=== PATIENT | male | born 1970 | race Caucasian/White ===

== ENCOUNTER 2020-07-10 18:34 | Emergency (ER) | payer BC ==
[2020-07-10 18:44] VITALS: BP 148/93; PULSE 80
[2020-07-10] MEDS ORDERED: HYDROmorphone 0.5 MG/0.5 ML Syringe IM ONE (18:52)
--- NOTE | 2020-07-10 19:07 | EDM.PDOC ---
ED HPI GENERAL MEDICAL PROBLEM - General Chief Complaint: Lower Extremity Injury/Pain Stated Complaint: RT FOOT INJURY Time Seen by Provider: 07/10/20 18:42 Source of Information: Reports: Patient, RN Notes Reviewed History Limitations: Reports: No Limitations - History of Present Illness INITIAL COMMENTS - FREE TEXT/NARRATIVE: Patient is a 50-year-old male who presents to the ER for a right foot injury. Patient notes that just prior to coming to the ER, he had a piece of angle iron that weighed roughly 10 pounds dropped onto the top of his right foot. States he was able to walk directly after this, but trying to put weight on this much at all afterwards, provides some extreme pain. Denies any numbness or tingling distal to the injury, but he does state some pain radiates up the anterior portion of his leg. He did not take anything for pain management prior to coming to the ER. He can wiggle his toes in all range of motion without much difficulty. Plantarflexion and dorsiflexion seem to provide some pain however he is able to do such with adequate strength. Patient denies any other sick- like symptoms, fever/chills, cough/shortness of breath, nausea/vomiti ng/diarrhea. Right Foot Pain Score (Numeric/FACES): 9 - Related Data Allergies Allergy/AdvReac Type Severity Reaction Status Date / Time No Known Allergies Allergy Verified 07/10/20 18:44 Home Meds: Home Meds . [No Known Home Meds] 07/10/20 [History] Past Medical History - Past Health History Medical/Surgical History: Denies Medical/Surgical History Social & Family History - Tobacco Use Tobacco Use Status *Q: Current Every Day Tobacco User Years of Tobacco use: 30 Packs/Tins Daily: 1 - Caffeine Use Caffeine Use: Reports: Coffee, Soda - Recreational Drug Use Recreational Drug Use: No - Living Situation & Occupation Living situation: Reports: , with Spouse Occupation: Employed Review of Systems - Review of Systems Review Of Systems: Comprehensive ROS is negative, except as noted in HPI. ED EXAM, GENERAL - Physical Exam Exam: See Below Exam Limited By: No Limitations General Appearance: Alert, WD/WN, No Apparent Distress Respiratory/Chest: No Respiratory Distress, Lungs Clear, Normal Breath Sounds, No Accessory Muscle Use, Chest Non-Tender Cardiovascular: Normal Peripheral Pulses, Regular Rate, Rhythm, No Edema Extremities: Normal Range of Motion, Normal Capillary Refill, Other (foot pain to right anterior midfoot) Neurological: Alert, Oriented, Normal Cognition, No Motor/Sensory Deficits Psychiatric: Normal Affect, Normal Mood Skin Exam: Warm, Dry, Intact, Normal Color, No Rash Course - Vital Signs Last Recorded V/S: Last Vital Signs Temp 97.6 F 07/10/20 18:40 Pulse 80 07/10/20 18:40 Resp 12 07/10/20 18:40 BP 148/93 H 07/10/20 18:40 Pulse Ox 96 07/10/20 18:40 - Orders/Labs/Meds Orders: Active Orders 24 hr Category Date Time Status Foot Comp Min 3V Rt [CR] Stat Exams 07/10/20 18:52 Ordered Meds: Medications Discontinued Medications Generic Name Dose Route Start Last Admin Trade Name Jed PRN Reason Stop Dose Admin Hydromorphone HCl 0.5 mg 07/10/20 18:52 07/10/20 19:02 Hydromorphone 0.5 Mg/0.5 Ml Syringe IM 07/10/20 18:53 0.5 mg ONETIME ONE Administration - Re-Assessments/Exams Free Text/Narrative Re-Assessment/Exam: 07/10/20 19:07 Patient presents to the ER for his right foot injury we will get x-rays for evaluation, and give him some Dilaudid for pain management. 07/10/20 20:35 Patient's foot x-ray has been done, and demonstrates no acute abnormalities. We will go ahead and discharge him home with general recommendations. Departure - Departure Time of Disposition: 20:44 Disposition: Home, Self-Care 01 Condition: Good Clinical Impression: Right foot sprain Qualifiers: Encounter type: initial encounter Qualified Code(s): S93.601A - Unspecified sprain of right foot, initial encounter - Discharge Information *PRESCRIPTION DRUG MONITORING PROGRAM REVIEWED*: No *COPY OF PRESCRIPTION DRUG MONITORING REPORT IN PATIENT ALEM: No Instructions: Foot Sprain Forms: ED Department Discharge Additional Instructions: You have been evaluated in the ED for your right foot injury. Your x-ray demonstrated no acute fracture or other bony abnormalities. Please use ice as tolerated to the affected area. Please try to elevate the affected area to relieve swelling. You may use Oliver wraps to the area, to provide some relief from swelling, and/or stabilization of the joint. Use can be obtained at any retail space like pharmacy, or [employer]. You may take Tylenol 500 mg or ibuprofen 600mg q6 hrs for pain relief. Please do so until you have a tolerable level of pain with activity. Do not exceed 4000mg Tylenol or 3200mg ibuprofen in a 24 hour time period. Please return to ED if your symptoms should change or worsen. Sepsis Event Note (ED) - Evaluation Sepsis Screening Result: No Definite Risk - Focused Exam Vital Signs: Vital Signs Temp Pulse Resp BP Pulse Ox 07/10/20 18:40 97.6 F 80 12 148/93 H 96 - My Orders Last 24 Hours: My Active Orders 07/10/20 18:52 Foot Comp Min 3V Rt [CR] Stat - Assessment/Plan Last 24 Hours: My Active Orders 07/10/20 18:52 Foot Comp Min 3V Rt [CR] Stat
--- NOTE | 2020-07-12 07:23 | CR ---
Right foot: 4 views of the right foot were obtained. Comparison: No prior foot study is available. Joint spaces are preserved. No acute fracture, dislocation or other bony abnormality is appreciated. Impression: 1. Nothing acute is appreciated on right foot exam. Diagnostic code #1
== END 2020-07-10 20:49 | disposition home or self-care (01) ==
LOC: JD.ED 18:34
DX: S93.601A Unspecified sprain of right foot, initial encounter (principal); Z72.0 Tobacco use; W20.8XXA Other cause of strike by thrown, projected or falling object, initial encounter
CPT/HCPCS: 73630; 96372; 99283; J1170